=== PATIENT | male | born 1960 | race Caucasian/White ===

== ENCOUNTER 2016-09-11 18:37 | Emergency (ER) | payer OTHER ==
[~2016-09-11] VITALS: Ht 167.6 cm; Wt 70.3 kg
[~2016-09-11 18:37] MED LIST: AMITRIPTYLINE25 MG PO; AUGMENTIN 875875 MG PO; FOLIC ACID1 MG PO; NAPROSYN500 MG PO; PRILOSEC20 MG PO; THERA1 TAB PO; VITAMIN B-11 TAB PO
[2016-09-11 19:04] LABS: BASO % 0.5 % (0.0-1.0); EOS # 0.1 10*3/uL (0.0-0.4); EOS % 1.4 % (1.0-4.0); HEMATOCRIT 42.8 % (42.0-52.0); HEMOGLOBIN 15.1 g/dl (14.0-18.0); LYMPH # 2.1 10*3/uL (1.3-4.4); LYMPH % 26.6 % (27.0-41.0); MEAN CELL VOLUME 88.4 fl (80.0-94.0); MEAN CORPUSCULAR HGB 31.2 pg (27.0-31.0); MEAN CORPUSCULAR HGB CONC 35.3 g/dl (33.0-37.0); MEAN PLATELET VOLUME 8.9 fl (9.6-12.3); MONO # 0.4 10*3/uL (0.1-1.0); MONO % 4.9 % (3.0-9.0); NEUT # 5.2 10*3/uL (2.3-7.9); NEUT % 66.1 % (47.0-73.0); PLATELET COUNT AUTOMATED 297 10*3/uL (130-400); RED BLOOD COUNT 4.84 10*6/uL (4.50-5.90); RED CELL DISTRI WIDTH 11.8 % (0-14.5); WHITE BLOOD COUNT 7.9 10*3/uL (4.8-10.8)
[2016-09-11 19:14] LABS: PROTHROMBIN TIME 10.5 SECONDS (9.0-12.4)
[2016-09-11 19:19] LABS: ALKALINE PHOSPHATASE 76 U/L (45-117); BILIRUBIN, TOTAL 0.3 mg/dl (0.2-1.0); BUN 7 mg/dl (7-24); CARBON DIOXIDE 23 mmol/L (21-32); CHLORIDE 109 mmol/L (98-107); EST GLOM FILT AFRICAN AMERICAN > 60 ml/min; GLUCOSE 118 mg/dL (65-99); POTASSIUM 4.3 mmol/L (3.5-5.1); SGOT/AST 31 IU/L (3-35); SGPT/ALT 24 U/L (12-78); SODIUM 142 mmol/L (136-145); TOTAL PROTEIN 7.6 gm/dL (6.4-8.2)
== END 2016-09-12 01:04 | disposition short-term general hospital (02) ==
LOC: ED 18:37
PROVIDERS: Physician Assistant
DX: S51.002A Unspecified open wound of left elbow, initial encounter (principal); S20.212A Contusion of left front wall of thorax, initial encounter; F17.200 Nicotine dependence, unspecified, uncomplicated; Z79.899 Other long term (current) drug therapy; Z88.5 Allergy status to narcotic agent; V19.9XXA Pedal cyclist (driver) (passenger) injured in unspecified traffic accident, initial encounter; Y93.89 Activity, other specified; Y92.89 Other specified places as the place of occurrence of the external cause; Y99.9 Unspecified external cause status

== ENCOUNTER 2016-09-19 17:54 | Emergency (ER) | payer OTHER ==
[~2016-09-19] VITALS: Ht 167.6 cm; Wt 70.8 kg
[2016-09-19] MEDS ORDERED: CIPRO500 MG PO (18:11)
[2016-09-19] MEDS ORDERED: CEFADROXIL500 M1 PO (18:11)
[2016-09-19] MEDS ORDERED: PERCOCET 325 MG1 TA2 PO (18:11)
== END 2016-09-20 00:48 | disposition home or self-care (01) ==
LOC: ED 17:54
DX: S20.212D Contusion of left front wall of thorax, subsequent encounter (principal); S51.002D Unspecified open wound of left elbow, subsequent encounter; F17.200 Nicotine dependence, unspecified, uncomplicated; X58.XXXD Exposure to other specified factors, subsequent encounter; Z88.6 Allergy status to analgesic agent

== ENCOUNTER → 2016-10-01 | Outpatient (CLI) | payer OTHER ==
[~2016-10-01] MED LIST changes: +CEFADROXIL500 M1 PO; +CIPRO500 MG PO; +PERCOCET 325 MG1 TA2 PO
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
== END | disposition home or self-care (01) ==
LOC: WOUNDCARE 04:51
DX: S51.012D Laceration without foreign body of left elbow, subsequent encounter (principal); F17.200 Nicotine dependence, unspecified, uncomplicated; V86.99XD Unspecified occupant of other special all-terrain or other off-road motor vehicle injured in nontraffic accident, subsequent encounter

== ENCOUNTER → 2016-10-17 | Outpatient (CLI) | payer OTHER ==
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
== END ==
LOC: WOUNDCARE 13:41
DX: S51.012D Laceration without foreign body of left elbow, subsequent encounter (principal); X58.XXXD Exposure to other specified factors, subsequent encounter

== ENCOUNTER 2018-06-17 12:27 | Emergency (ER) | payer OTHER ==
[~2018-06-17] VITALS: Ht 167.6 cm; Wt 73.5 kg
[2018-06-17] MEDS ORDERED: IBUPROFEN600 MG PO (14:04)
[2018-06-17] MEDS ORDERED: Tobrex Ophth S2.5 ML OPH (14:04)
== END 2018-06-17 14:45 | disposition home or self-care (01) ==
LOC: ED 12:27
DX: S05.01XA Injury of conjunctiva and corneal abrasion without foreign body, right eye, initial encounter (principal); S05.02XA Injury of conjunctiva and corneal abrasion without foreign body, left eye, initial encounter; F17.200 Nicotine dependence, unspecified, uncomplicated; Z88.5 Allergy status to narcotic agent; Z79.2 Long term (current) use of antibiotics; X58.XXXA Exposure to other specified factors, initial encounter; Y93.89 Activity, other specified; Y92.69 Other specified industrial and construction area as the place of occurrence of the external cause; Y99.8 Other external cause status

== ENCOUNTER 2018-11-19 15:43 | Emergency (ER) | payer OTHER ==
[~2018-11-19] VITALS: Ht 167.6 cm; Wt 74.4 kg
[~2018-11-19 15:43] MED LIST changes: +IBUPROFEN600 MG PO; +Tobrex Ophth S2.5 ML OPH
[2018-11-19] MEDS ORDERED: ACULAR 0.5%3 ML OPH (16:29)
[2018-11-19] MEDS ORDERED: Tobrex Ophth S2.5 ML OPH (16:29)
== END 2018-11-19 16:35 | disposition home or self-care (01) ==
LOC: ED 15:43
DX: S05.01XA Injury of conjunctiva and corneal abrasion without foreign body, right eye, initial encounter (principal); Z88.6 Allergy status to analgesic agent; W22.8XXA Striking against or struck by other objects, initial encounter; Y93.89 Activity, other specified; Y92.89 Other specified places as the place of occurrence of the external cause; Y99.8 Other external cause status

== ENCOUNTER 2020-09-26 05:56 | Emergency (ER) | payer OTHER ==
[~2020-09-26] VITALS: Ht 167.6 cm; Wt 74.8 kg
[~2020-09-26 05:56] MED LIST changes: +ACULAR 0.5%3 ML OPH
[2020-09-26 06:13] LABS: BASO % 0.6 % (0.0-1.0); EOS # 0.3 10*3/uL (0.0-0.4); EOS % 3.7 % (1.0-4.0); HEMATOCRIT 42.5 % (42.0-52.0); LYMPH # 2.5 10*3/uL (1.3-4.4); LYMPH % 36.6 % (27.0-41.0); MEAN CELL VOLUME 87.1 fl (80.0-94.0); MEAN CORPUSCULAR HGB 31.4 pg (27.0-31.0); MEAN PLATELET VOLUME 8.5 fl (9.6-12.3); MONO # 0.6 10*3/uL (0.1-1.0); MONO % 8.5 % (3.0-9.0); NEUT # 3.4 10*3/uL (2.3-7.9); NEUT % 50.3 % (47.0-73.0); PLATELET COUNT AUTOMATED 255 10*3/uL (130-400); RED BLOOD COUNT 4.88 10*6/uL (4.50-5.90); RED CELL DISTRI WIDTH 12.2 % (0-14.5); WHITE BLOOD COUNT 6.7 10*3/uL (4.8-10.8)
[2020-09-26 06:28] LABS: ALBUMIN 3.8 gm/dl (3.1-4.5); ALKALINE PHOSPHATASE 78 U/L (45-117); BUN 14 mg/dl (7-24); CHLORIDE 107 mmol/L (98-107); POTASSIUM 3.9 mmol/L (3.5-5.1); SGOT/AST 20 IU/L (3-35); SGPT/ALT 28 U/L (12-78); SODIUM 137 mmol/L (136-145); TOTAL PROTEIN 7.2 gm/dL (6.4-8.2)
[2020-09-26 06:31] LABS: TROPONIN I < 0.015 ng/ml (<0.045)
== END 2020-09-26 09:27 | disposition home or self-care (01) ==
LOC: ED 05:56
PROVIDERS: Internal Medicine
DX: R07.9 Chest pain, unspecified (principal); Z88.6 Allergy status to analgesic agent